=== PATIENT | male | born 1950 | race Caucasian/White ===

== ENCOUNTER → 2020-07-14 | Outpatient (CLI) | payer MEDICARE ==
[~2020-07-14] VITALS: Ht 180.3 cm; Wt 74.8 kg
[~2020-07-14] MED LIST: ASPIRIN EC325 M1 PO; FLECAINIDE ACET50 M2 PO; HYDROCHLOROTHIA25 M2 PO; KEFLEX500 M1 PO; SIMVASTATIN80 MG PO; SUPER THERAVIT1 EACH PO; TOPROL XL25 MG PO
[2020-07-14 09:30] LABS: HEMOGLOBIN 13.3 gm/dL (14.0-18.0)
[2020-07-14 09:35] LABS: CALCIUM 8.7 mg/dL (8.5-10.1); POTASSIUM 3.6 mmol/L (3.5-5.1)
[2020-07-14 09:36] LABS: HEMATOCRIT 42.7 % (42.0-52.0); MCH 29.1 pg (26.0-34.0); MCHC 31.2 g/dL (28.0-37.0); MCV 93.1 fL (80.0-100.0); NUCLEATED RBCS 0 /100WBC; PLATELET COUNT* 170 thou/uL (150-400); RBC 4.59 mil/uL (4.50-6.00); RDW-CV 13.4 % (10.5-14.5)
[2020-07-14 09:37] LABS: APTT 27.1 Seconds (25.0-31.3); PROTIME 10.1 Seconds (9.20-11.50)
[2020-07-14 09:39] VITALS: BP 160/71
[2020-07-14 09:39] LABS: ALBUMIN 4.3 g/dL (3.4-5.0); TOTAL BILIRUBIN 0.5 mg/dL (<0.1-1.0); TOTAL PROTEIN 7.5 g/dL (6.4-8.2); WBC 106.1 thou/uL (4.0-11.0)
[2020-07-14 10:13] LABS: ABSOLUTE LYMPHOCYTES 91.2 thou/uL (0.8-5.3); ABSOLUTE MONOCYTES 3.2 thou/uL (0.0-1.2); ABSOLUTE NEUTROPHILS 11.7 thou/uL (1.6-8.1); ATYPICAL LYMPHS 3 %; PLATELET ESTIMATE ADEQUATE
--- NOTE | 2020-07-15 13:41 | EKG ---
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
--- NOTE | 2020-07-16 16:48 | CARD ---
[address] [address] CARDIAC CATH REPORT Name: RANJIT VALENTINE Room: [facility]#: [id number] Admission: 07/14/20 Attend Phys: Charlie Quinones MD Discharge: Date of : 50 Report #: [id number] THIS REPORT FOR: //name// cc: Sherwin Vidales MD, Mohd I. MD ~ APPROVED REPORT Study performed: 07/14/2020 10:57:15 Patient Status: Out-Patient Room #: Event Personnel: Charlie Quinones Mold Closer, Opal Schilling RN RN, Zabrina De La Cruz RTR Scrub, Noreen Restrepo RTR Monitor Exam: Insertion of Dual Chamber Permanent Pacemaker The patient is a 69 year-old male with a history of . Conscious Sedation Start time: 11:45 End Time: 12:14 Fentanyl 50 mcg Versed 2 mg Implanted Devices: Medtronic Ventricular lead. Model: 5076-58 cm. Serial: [id number]. Medtronic Atrial lead. Model: 5076-52 cm. Serial: [id number]. Medtronic Dual Chamber Pacemaker. Model: Verona Jiang DR [facility] W3DR01. Serial: [id number]. Procedure The patient underwent informed consent. We discussed the details of the procedure including the risks, which include, but not limited to bleeding, infection, vascular damage, cardiac perforation, and pneumothorax. He understood these risks and was willing to proceed. As such, he was brought to the EP/Cardiac Catheterization laboratory in a fasting and sedated state and prepped and draped in a sterile fashion, received IV antibiotics prior to initiation of the procedure and a venogram was performed showing patency of the left axillary vein. The patient underwent conscious sedation, with no related complications. The patient was brought to the EP/Cardiac Catheterization laboratory and the left chest and shoulder were prepped and draped in a sterile manner. During this case, Fluoroscopy and visipaque 20cc were used for imaging. The left subclavian region was infiltrated with 2% [place] [address] CARDIAC CATH REPORT Name: RANJIT VALENTINE Room: [facility]#: [id number] Admission: 07/14/20 Attend Phys: Charlie Quinones MD Discharge: Date of : 50 Report #: [id number] subcutaneous anesthesia. A transverse incision was made in the left upper chest cavity. The subcutaneous pocket was formed via blunt dissection. Percutaneous venous access was achieved and an introducer sheath was inserted into the left Subclavian vein. Sheaths were positions using the modified Seldinger technique Utilizing fluoroscopic guidance, the atrial and ventricular lead wires were advanced over the wires and positioned in the right atria and right ventricle respectively. Capturing and sensing thresholds were verified. Electrode Parameters P Wave: 1.25 mV R Wave: 5.6 mV Atrial Threshold: 0.5 V at 0.40 ms Ventricular Threshold: 1.1 V at 0.40 ms Atrial Resistance: 456 ohms Ventricular Resistance: 646 ohms Dual Chamber The atrial and ventricular leads were then secured using 0 silk sutures. The subcutaneous pocket was irrigated with Ancef 1 gram antibiotic solution.The atrial and ventricular leads were attached to the appropriate receptacles on the pulse generator and set screws firmly tightened to insure adequate contact and stability. The lead and pulse generator were placed into the subcutaneous pocket. Sharp and sponge counts were confirmed to be correct. At this time the pocket was closed subcutaneously with a 2.0 Vicryl and the skin was closed with a 4.0 Vicryl. The operative site was dressed in sterile fashion with benzoin spray, steri strips, telfa, tegaderm and the patient was transferred to the floor in stable condition. Complications The patient tolerated the procedure well and there were no complications associated with the procedure. Findings Specimens Removed: N/A Estimated Blood Loss: <5cc Conclusion 1. Tachybradycardia syndrome. 2. Successful placement of a dual-chamber pacemaker with [place] [address] CARDIAC CATH REPORT Name: RANJIT VALENTINE Room: [facility]#: [id number] Admission: 07/14/20 Attend Phys: Charlie Quinones MD Discharge: Date of : 50 Report #: [id number] Recommendations 1. Follow-up site check in 1 week. 2. Follow-up device interrogation in 1 to 2 months. <ELECTRONICALLY SIGNED> By: Charlie Quinones MD, FACC 07/16/201647 47 47Michael Ani Quinones MD, FACC /INF
== END ==
LOC: M.CL 08:29
PROVIDERS: ATTEND Internal Medicine Cardiovascular Disease
DX: I49.5 Sick sinus syndrome (principal); C91.10 Chronic lymphocytic leukemia of B-cell type not having achieved remission; I48.0 Paroxysmal atrial fibrillation; I10 Essential (primary) hypertension; I25.10 Atherosclerotic heart disease of native coronary artery without angina pectoris; E78.2 Mixed hyperlipidemia; Z79.82 Long term (current) use of aspirin; Z79.899 Other long term (current) drug therapy; Z87.891 Personal history of nicotine dependence; Z98.890 Other specified postprocedural states; Z82.49 Family history of ischemic heart disease and other diseases of the circulatory system; Z88.8 Allergy status to other drugs, medicaments and biological substances

== ENCOUNTER 2021-01-13 14:15 | Emergency (ER) | payer MEDICARE ==
[~2021-01-13] VITALS: Ht 180.3 cm; Wt 82.1 kg
[2021-01-13 14:19] VITALS: BP 147/57
[2021-01-13] MEDS ORDERED: IMBRUVICA420 MG PO (14:23)
[2021-01-13] MEDS ORDERED: ESTER-C 1,0001 EACH PO (14:24)
[2021-01-13] MEDS ORDERED: MAXZIDE-25 MG1 EACH PO (14:25)
[2021-01-13] MEDS ORDERED: LOSARTAN POTAS100 MG PO (14:25)
[2021-01-13] MEDS ORDERED: VITAMIN D31250 MC1 PO (14:26)
[2021-01-13] MEDS ORDERED: COREG25 M1 PO (14:27)
[2021-01-13 14:39] LABS: HEMATOCRIT 36.8 % (42.0-52.0); HEMOGLOBIN 11.8 gm/dL (14.0-18.0); MCH 29.2 pg (26.0-34.0); MCV 91.2 fL (80.0-100.0); MPV 12.6 fl. (7.2-11.1); NUCLEATED RBCS 1 /100WBC; PLATELET COUNT* 96 thou/uL (150-400); RBC 4.03 mil/uL (4.50-6.00); RDW-CV 13.9 % (10.5-14.5)
[2021-01-13 14:40] LABS: WBC 49.1 thou/uL (4.0-11.0)
[2021-01-13 14:45] LABS: CALCIUM 9.1 mg/dL (8.5-10.1); CREATININE 1.4 mg/dL (0.6-1.3); POTASSIUM 3.9 mmol/L (3.5-5.1)
[2021-01-13 14:47] LABS: APTT 24.9 Seconds (25.0-31.3); PROTIME 10.3 Seconds (9.20-11.50)
[2021-01-13 15:00] LABS: ALBUMIN 3.7 g/dL (3.4-5.0); MAGNESIUM 2.1 mg/dL (1.8-2.4); TOTAL BILIRUBIN 0.2 mg/dL (<0.1-1.0); TOTAL PROTEIN 6.4 g/dL (6.4-8.2)
[2021-01-13 15:17] LABS: ABSOLUTE EOSINOPHILS 0.5 thou/uL (0.0-0.7); ABSOLUTE LYMPHOCYTES 42.7 thou/uL (0.8-5.3); ABSOLUTE MONOCYTES 0.5 thou/uL (0.0-1.2); ABSOLUTE NEUTROPHILS 5.4 thou/uL (1.6-8.1); PLATELET ESTIMATE DECREASED
[2021-01-13 15:18] LABS: LARGE PLATELETS FEW
--- NOTE | 2021-01-13 16:34 | NUR ---
TRIPE COOKER CALLED TO SET UP FOLLOW-UP APT FOR January AT 1100
--- NOTE | 2021-01-13 16:36 | EKG ---
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
[2021-01-13 17:42] VITALS: BP 149/95
--- NOTE | 2021-01-15 13:16 | CON ---
[address] [address] CONSULTATION Name: RANJIT VALENTINE Room: [facility] Singh.#: [id number] Admission: 01/13/21 Attend Phys: Discharge: 01/13/21 Date of : 50 Report #: [id number] THIS REPORT FOR: cc: Sherwin Vidales MD, Mohd I. MD Blick, David R. MD [facility] ~ DOC #: [id number] cc: MD Colby Lucio MD [facility] DATE OF CONSULTATION: 01/13/2021 CARDIOLOGY CONSULTATION HISTORY OF PRESENT ILLNESS: The patient is a 70-year-old white male, who I asked to see in the emergency room today after he had a history of atrial fibrillation. The patient states his first episode of atrial fibrillation occurred about 5 years ago when he was at [facility]. He apparently did not require cardioversion. He has never been anticoagulated. Recently, he has been followed by my partner, Dr. Quinones, who placed him on flecainide. A year ago, Dr. Quinones inserted a pacemaker for symptomatic bradycardia. He notes since that time he has one episode of atrial fibrillation. He notes that 3 days ago he felt his heart beating irregularly. He felt short of breath and lightheaded. He called Dr. Quinones's office and was told to take an extra dose of flecainide. Because of the symptoms, he finally drove himself to the emergency room at [place] and was admitted for further evaluation and treatment. He apparently had a heart catheterization back in 2013 that showed no significant coronary artery disease with a normal ejection fraction. He denies any recent chest pain, lower extremity edema, syncope, fever or cough. PAST MEDICAL HISTORY: He has had previous appendectomy, knee surgery, shoulder surgery, hypertension and hyperlipidemia. He was diagnosed with CLL 6 months ago. He is currently receiving chemotherapy at [facility]. CURRENT MEDICATIONS: Include aspirin, carvedilol and flecainide, a pill for CLL, losartan, simvastatin and Maxzide. He has a previous intolerance to HYDROCODONE. FAMILY HISTORY: His father had a heart attack. SOCIAL HISTORY: He is . He and his live in [place], [place]. 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 He quit smoking years ago. Drinks alcohol only occasionally. REVIEW OF SYSTEMS: No history of stroke, asthma, liver disease, kidney disease, [place] [address] CONSULTATION Name: RANJIT VALENTINE Room: [facility]#: [id number] Admission: 01/13/21 Attend Phys: Discharge: 01/13/21 Date of : 50 Report #: [id number] chronic skin condition or psychiatric illness. PHYSICAL EXAMINATION: GENERAL: Revealed an elderly male who appears in no distress, lying on a stretcher. VITAL SIGNS: He had a blood pressure of 130/90, pulse is 90 and irregular. He was afebrile. HEENT: He was anicteric. Conjunctivae are pink. Mucous membranes moist. NECK: Veins do not appear distended. No carotid bruits. Neck is supple. CHEST: Clear to auscultation. HEART: Irregular rhythm. No significant murmur. ABDOMEN: Soft. EXTREMITIES: Had no edema. Posterior tibial pulse 2+ bilaterally. SKIN: My skin is cool and dry. NEUROLOGIC: Nonfocal. DIAGNOSTIC DATA: ECG shows atrial fibrillation with a controlled ventricular response rate, nonspecific ST segment changes. His workup, he had a portable chest x-ray in the emergency room today, which showed normal heart size, clear lung white. LABORATORY WORK: Sodium 143, BUN 30 and creatinine 1.4. Troponin 0.06. BNP 1409. White blood cell count 49,000, hemoglobin 11.8 and platelet count 96,000. His COVID antigen test was negative. IMPRESSION AND RECOMMENDATIONS: 1. Atrial fibrillation. I would consider rate control versus cardioversion and switching flecainide to a more potent antiarrhythmic drug. Because of age and history of hypertension, I would consider anticoagulation. 2. Chronic lymphocytic leukemia. The patient is currently treated. 3. Hypertension. The patient is on a beta kailash and ARB. 4. Hyperlipidemia. The patient is on a statin drug. Colby Ojeda MD [facility] JULIETA/JARRETT/LEONEL <ELECTRONICALLY SIGNED> By: Colby Ojeda MD, [facility] 01/15/21 1316 1507 0100Daroland Ojeda MD, [facility] /nt
[2021-01-19] MEDS ORDERED: CLONIDINE HCL0.3 M3 PO (10:24)
== END 2021-01-13 17:42 | disposition home or self-care (01) ==
LOC: M.ERS 14:15 → M.TBA-ER 15:40 → M.ERS 15:40
PROVIDERS: Family Medicine
DX: I48.91 Unspecified atrial fibrillation (principal); Z20.822 Contact with and (suspected) exposure to COVID-19; R06.00 Dyspnea, unspecified; Z88.5 Allergy status to narcotic agent; Z79.899 Other long term (current) drug therapy; Z79.82 Long term (current) use of aspirin; Z98.890 Other specified postprocedural states

== ENCOUNTER → 2021-01-19 | Outpatient (CLI) | payer MEDICARE ==
[2021-01-19] VITALS (16 sets, daily range): BP systolic 120–155; BP diastolic 63–92
[~2021-01-19] MED LIST changes: +CLONIDINE HCL0.3 M3 PO; +COREG25 M1 PO; +ESTER-C 1,0001 EACH PO; +IMBRUVICA420 MG PO; +LOSARTAN POTAS100 MG PO; +MAXZIDE-25 MG1 EACH PO; +VITAMIN D31250 MC1 PO
[2021-01-19 10:24] LABS: HEMATOCRIT 33.6 % (42.0-52.0); HEMOGLOBIN 10.8 gm/dL (14.0-18.0); MCH 29.3 pg (26.0-34.0); MCHC 32.3 g/dL (28.0-37.0); MCV 90.8 fL (80.0-100.0); MPV 13.8 fl. (7.2-11.1); RBC 3.69 mil/uL (4.50-6.00); RDW-CV 14.2 % (10.5-14.5); WBC 37.5 thou/uL (4.0-11.0)
[2021-01-19 10:28] LABS: CALCIUM 8.6 mg/dL (8.5-10.1); CREATININE 1.2 mg/dL (0.6-1.3); POTASSIUM 3.9 mmol/L (3.5-5.1)
[2021-01-19 10:31] LABS: PROTIME 10.4 Seconds (9.20-11.50)
[2021-01-19 10:33] LABS: ALBUMIN 3.6 g/dL (3.4-5.0); TOTAL BILIRUBIN 0.5 mg/dL (<0.1-1.0); TOTAL PROTEIN 6.3 g/dL (6.4-8.2)
--- NOTE | 2021-01-19 11:26 | EKG ---
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1950 Requested By: Charlie Quinones Order Number: [id number] Reading MD: Charlie Quinones Measurements Intervals [place] Rate: 80 P: 0 [place]: 260 QRS: -17 QRSD: 128 T: -33 QT: 422 QTc: 487 Interpretive Statements Atrial fibrillation with occasional ventricular pacing Inferoposterior infarct, recent Baseline wander in lead(s) I,II,aVR,V3,V4,V5 Compared to ECG 01/13/2021 14:19:21 Myocardial infarct finding now present Electronically Signed On 01-19-2021 11:26:22 CDT by Charlie Quinones [email or web address] <ELECTRONICALLY SIGNED> By: Charlie Quinones MD, FACC 01/19/21 1126 1040 1040 Charlie Quinones MD, FAC /EPI
--- NOTE | 2021-01-24 10:00 | PROC ---
[address] [address] PROCEDURE REPORT Name: RANJIT VALENTINE Room: [facility]#: [id number] Admission: 01/19/21 Attend Phys: Charlie Quinones MD Discharge: Date of : 50 Report #: [id number] THIS REPORT FOR: cc: Sherwin Vidales MD, Mohd I. MD [place], Michael J. MD [facility] ~ DOC #: [id number] cc: MD Charlie Lucio MD DATE OF PROCEDURE: 01/21/2021 PROCEDURE: Direct current cardioversion. INDICATION: Persistent atrial fibrillation. DESCRIPTION OF PROCEDURE: After informed consent was obtained, the patient was brought to the cardiac holding area. The patient was given 4 mg of intravenous Versed and 75 mcg of intravenous fentanyl for conscious sedation. Once the patient was adequately sedated, he received a biphasic shock of 300 joules, which failed to convert him from atrial fibrillation. He received a second biphasic shock of 360 joules converting him from atrial fibrillation to an atrially paced rhythm. The patient tolerated the procedure well and without complication. He was discharged to home in stable condition. IMPRESSION: 1. Persistent atrial fibrillation. 2. Successful direct current cardioversion to an atrially paced rhythm. Charlie Quinones MD MJL/RAFI <ELECTRONICALLY SIGNED> By: Charlie Quinones MD, FACC 01/24/21 1000 1559 2311Micclint Quinones MD, FAC /nt
== END | disposition home or self-care (01) ==
LOC: M.CL 09:33
PROVIDERS: ATTEND Internal Medicine Cardiovascular Disease
DX: I48.19 Other persistent atrial fibrillation (principal); R06.00 Dyspnea, unspecified; Z79.82 Long term (current) use of aspirin; Z98.890 Other specified postprocedural states; Z79.899 Other long term (current) drug therapy; Z88.8 Allergy status to other drugs, medicaments and biological substances; Z79.01 Long term (current) use of anticoagulants